=== PATIENT | male | born 1975 ===

== ENCOUNTER 2017-03-25 16:58 | Inpatient (IN) | payer MEDICAID, OTHER ==
--- NOTE | 2017-03-25 17:39 | C.PDOC ---
History Of Present Illness <Debora Billssamantha Parra - Last Filed: 03/25/17 19:01> <Lisa Nix - Last Filed: 03/25/17 19:33> 41-year-old male, pre screened for detox from Heroin, presents to the emergency department with complaints of swelling, pain and redness to the right arm. States he used six bags of Heroin today. Denies vomiting, diarrhea, fever, chills, numbness, or weakness. (Beatriz Bills) History Per: Patient History/Exam Limitations: no limitations <Debora Billssamantha Parra - Last Filed: 03/25/17 19:01> <Lisa Nix - Last Filed: 03/25/17 19:33> Time Seen by Provider: 03/25/17 17:17 Chief Complaint (Nursing): Substance Abuse Past Medical History Reviewed: Historical Data, Nursing Documentation, Vital Signs - Medical History PMH: Anxiety, Depression Denies: Diabetes, Hepatitis, HIV, HTN, Seizures, Sexually Transmitted Disease Family History: States: Unknown Family Hx - Social History Hx Tobacco Use: Yes (1 ppd) Hx Alcohol Use: No Hx Substance Use: Yes (percocet, heroin, cocaine, xanax) - Immunization History Hx Tetanus Toxoid Vaccination: Yes Hx Influenza Vaccination: No Hx Pneumococcal Vaccination: No <NatanaelkhangDeboraBeatriz C - Last Filed: 03/25/17 19:01> Review Of Systems Except As Marked, All Systems Reviewed And Found Negative. Constitutional: Positive for: Chills, Malaise. Negative for: Fever Cardiovascular: Negative for: Chest Pain Respiratory: Negative for: Shortness of Breath Gastrointestinal: Positive for: Nausea. Negative for: Vomiting Neurological: Negative for: Weakness, Numbness Psych: Negative for: Suicidal ideation <NatanaelkhangDeboraBeatriz C - Last Filed: 03/25/17 19:01> Physical Exam - Physical Exam Appears: Non-toxic, No Acute Distress, Other (calm and cooperative) Skin: Warm, Dry, Other (4x5 cm area of swelling and redness, that is warm and tender, to the right proximal forearm. No fluctuance or induration) Head: Atraumatic, Normacephalic Eye(s): bilateral: Normal Inspection Oral Mucosa: Moist Neck: Normal ROM Cardiovascular: Rhythm Regular Respiratory: Normal Breath Sounds, No Accessory Muscle Use Extremity: Normal ROM, Capillary Refill (< 2 sec), No Deformity Extremity: Bilateral: Normal Color And Temperature Pulses: Left Radial: Normal, Right Radial: Normal Neurological/Psych: Oriented x3, Normal Speech, Normal Motor, Normal Sensation Gait: Steady <Beatriz Bills - Last Filed: 03/25/17 19:01> ED Course And Treatment - Laboratory Results Result Diagrams: 03/25/17 18:11 03/25/17 18:11 O2 Sat by Pulse Oximetry: 97 (on RA) Pulse Ox Interpretation: Normal <Beatriz Bills - Last Filed: 03/25/17 19:01> - Laboratory Results Result Diagrams: 03/25/17 18:11 03/25/17 18:11 <Lisa Nix - Last Filed: 03/25/17 19:33> Medical Decision Making <Beatriz Bills - Last Filed: 03/25/17 19:01> <Lisa Nix - Last Filed: 03/25/17 19:33> Medical Decision Making: The patient has a cellulitis on the Right forearm, there is no fluctuance at this time and will start the patient on oral antibiotics. Skin marker was drawn around the wound to check for worsening. Keflex and Bactrim PO ordered. The patient should have both Keflex 500mg and Bactrim DS 1 tab PO twice a day for 14 days and a wound check in 1-2 days by a medicine doctor. The patient is medically cleared for detox. (Beatriz Bills) Disposition - Disposition Disposition Time: 19:03 - POA Present On Arrival: None <Beatriz Bills - Last Filed: 03/25/17 19:01> Counseled Patient/Family Regarding: Studies Performed, Diagnosis - Disposition Disposition Time: 19:32 - POA Present On Arrival: None <Lisa Nix - Last Filed: 03/25/17 19:33> - Disposition Disposition: HOSPITALIZED Condition: STABLE - Clinical Impression Clinical Impression: Cellulitis, Opiate dependence - Scribe Statement The provider has reviewed the documentation as recorded by the Scribe <Beatriz Bills - Last Filed: 03/25/17 19:01> <Lisa Nix - Last Filed: 03/25/17 19:33> - Scribe Statement Samanthaanne Madrigal All medical record entries made by the Scribe were at my direction and personally dictated by me. I have reviewed the chart and agree that the record accurately reflects my personal performance of the history, physical exam, medical decision making, and the department course for this patient. I have also personally directed, reviewed, and agree with the discharge instructions and disposition. (Beatriz Bills) Physician Patient Turnover Patient Signed Over To: Lisa Nix Handoff Comments: Pending psych call and disposition <Beatriz Bills - Last Filed: 03/25/17 19:01> Decision To Admit <Beatriz Bills - Last Filed: 03/25/17 19:01> - Pt Status Changed To: Hospital Disposition Of: Inpatient - Admit Certification Admit to Inpatient:: After my assessment, the patient will require hospitalization for at least two midnights. This is because of the severity of symptoms shown, intensity of services needed, and/or the medical risk in this patient being treated as an outpatient. - InPatient: Physician Admission Certification: I certify that this patient requires 2 or more midnights of care for the following reason:: SEE NOTE - . Bed Request Type: Detox Admitting Physician: Angela Farias <Lisa Nix - Last Filed: 03/25/17 19:33> - . Patient Diagnosis: Cellulitis, Opiate dependence
[2017-03-25 18:17] LABS: BASO % 0.6 % (0.0-2.0); EOS % 0.3 % (0.0-4.0); HEMATOCRIT 40.5 % (35.0-51.0); LYMPH # 1.3 K/uL (1.0-4.3); LYMPH % 15.9 % (20.0-40.0); MEAN CELL VOLUME 91.8 fL (80.0-94.0); MEAN CORPUSCULAR HEMOGLOBIN 30.6 pg (27.0-31.0); MEAN CORPUSCULAR HGB CONC 33.3 g/dL (33.0-37.0); MEAN PLATELET VOLUME 9.7 fL (7.2-11.7); MONO # 0.5 K/uL (0.0-0.8); MONO % 6.6 % (0.0-10.0); RED CELL DISTRIBUTION WIDTH 14.5 % (11.5-14.5); WHITE BLOOD COUNT 7.9 K/uL (4.8-10.8)
[2017-03-25 18:20] LABS: URINE BACTERIA RARE (<OCC); URINE BILIRUBIN NEGATIVE (NEGATIVE); URINE BLOOD NEGATIVE (NEGATIVE); URINE COLOR Yellow (YELLOW); URINE GLUCOSE (UA) NORMAL (Normal); URINE KETONE NEGATIVE (NEGATIVE); URINE LEUKOCYTE ESTERASE NEG Leu/uL (Negative); URINE PROTEIN NEGATIVE (NEGATIVE); WBC URINE < 1 /hpf (0-5)
[2017-03-25 18:21] LABS: CHLORIDE 101 mmol/L (98-107); POTASSIUM 3.7 mmol/L (3.6-5.2); SODIUM 137 mmol/L (132-148)
[2017-03-25 18:23] LABS: AST/SGOT 52 U/L (17-59); BILIRUBIN,TOTAL 0.7 mg/dL (0.2-1.3); CARBON DIOXIDE 23 mmol/L (22-30); GFR AFRICAN-AMERICAN > 60
[2017-03-25 18:24] LABS: ALB/GLOB RATIO 1.3 (1.0-2.1); ALKALINE PHOSPHATASE 55 U/L (38-126); ALT/SGPT 59 U/L (21-72); BLOOD UREA NITROGEN 9 mg/dL (9-20); CALCIUM 8.2 mg/dl (8.6-10.4); GLUCOSE,RANDOM 123 mg/dL (75-110); TOTAL PROTEIN 7.3 g/dL (6.3-8.3)
[2017-03-25 18:25] LABS: ALCOHOL SERUM < 10 mg/dl (0-10)
[2017-03-25] MEDS ORDERED: Tmp-Smz 800 mg-160 mg DS Tab PO STA (18:35)
[2017-03-25] MEDS ORDERED: Tmp-Smz 800 mg-160 mg DS Tab ONE (18:42)
[2017-03-25] MEDS ORDERED: Aluminum Hydroxide/Magnesium Hydroxide Susp (30 mL) PO PRN (23:06)
[2017-03-25] MEDS ORDERED: Benzocaine/Menthol (Cepacol) Lozenge PO PRN (23:06)
[2017-03-26] MEDS: Tmp-Smz 800 mg-160 mg DS Tab PO SCH ×4 (01:14→22:21)
--- NOTE | 2017-03-26 08:32 | RAD ---
PROCEDURE: Radiographs of the Right Forearm HISTORY: IVDA, swelling/red to right mid forearm COMPARISON: None available. TECHNIQUE: Frontal and lateral views obtained. FINDINGS: BONES: No fracture. An ulnar sided smooth periosteal reaction also volar sided with cortical thickening affects the distal radial metaphysis. There is thin intra cortical find radiolucency which may also involve the radial cortex of the same distal radial metaphyseal bony segment on the frontal view. Relative osseous radiolucency of the this distal radial metaphyseal segment is also suggested. A subacute to chronic osteomyelitis here needs to be considered. JOINT SPACES: Unremarkable. OTHER FINDINGS: There is diffuse subcutaneous reticulated edema most pronounced proximally the forearm on the lateral view bordering the elbow joint level no gas within the subcutaneous tissues is noted. IMPRESSION: Distal radial bony findings concerning for a subacute to chronic osteomyelitis. If indicated, consider MRI of the forearm for further evaluation.
--- NOTE | 2017-03-26 15:34 | PCM.PSYCH ---
Initial Psychiatric Evaluation - Initial Psychiatric Evaluation Type of Admission: Voluntary Legal Status: Capacity Chief Complaint (in patient's own words): "I want heroin detox" History of Present Illness and Precipitating Events: Pt is seen, chart reviewed, case discussed Pt is a 41 year old single male with two children. He is homeless and stays with different people. He is not employed. Pt presented to [facility] ER for cellulitis on his right arm and heroin detox. Pt has been using IV heroin since he was 24 years old. He uses 40-50 bags a day. He also uses IV cocaine and xanax occasionally. He smokes one pack a day and denies marijuana and alcohol use. Patient was hospitalized at [facility] in April 2016 for depression and attempted suicide. He has never been through detox before. Pt says he is feeling withdrawal symptoms, his last use was yesterday at 2pm. Patient says he feels depressed but denies S/I. Patient is currently on probation. He had been on methadone maintenance in the past but not for very long because he went to longterm for 90 days. Patient says his plan for after detox is to enter a "Re-entry" program so he can get housing. However, he has ongoing legal issues but is vague about them. PsychHx: Depression, Opiate use disorder PMH: denies FamPsychHx: denies Current Medications: Active Medications Generic Name Dose Route Start Last Admin Trade Name Freq PRN Reason Stop Dose Admin Acetaminophen 650 mg 03/25/17 23:06 Tylenol 325mg Tab PO Q4H PRN Fever greater than 101 F Al Hydrox/Mg Hydrox/Simethicone 30 ml 03/25/17 23:06 Maalox 30 Ml PO TID PRN Indigestion / Heartburn Benzocaine/Menthol 1 guanaco 03/25/17 23:06 Cepacol Sore Throat PO QID PRN Sore Throat Cephalexin Monohydrate 500 mg 03/25/17 23:15 03/26/17 11:06 Keflex PO 500 mg Q12 KANU Administration Clonidine HCl 0.1 mg 03/25/17 23:06 Catapres PO Q8 PRN COWS Score More or Equal to 5 Docusate Sodium 100 mg 03/26/17 10:00 03/26/17 11:06 Colace PO 100 mg DAILY KANU Administration Loperamide HCl 2 mg 03/25/17 23:06 Imodium PO Q8 PRN Diarrhea Methadone HCl 20 mg 03/26/17 10:00 03/26/17 11:07 Methadone PO 03/30/17 09:59 20 mg Q24H KANU Administration Taper Nicotine 1 patch 03/26/17 10:15 03/26/17 11:05 Nicoderm Cq TD 1 patch DAILY KANU Administration Ondansetron HCl 4 mg 03/25/17 23:06 Zofran Tab PO Q8 PRN Nausea/Vomiting Pseudoephedrine HCl 60 mg 03/25/17 23:06 Sudafed Tab PO QID PRN Nasal/Sinus Congestion Trazodone HCl 50 mg 03/25/17 22:45 03/25/17 22:41 Desyrel PO 50 mg HS PRN Administration insomnia Trimethoprim/Sulfamethoxazole 1 tab 03/25/17 23:15 03/26/17 11:06 Bactrim Ds Tab PO 1 tab Q12H KANU Administration Past Psychiatric History - Past Psychiatric History Pertinent Medical Hx (Current Medical&Sleep Prob, Allergies): Allergies Allergy/AdvReac Type Severity Reaction Status Date / Time No Known Allergies Allergy Verified 05/06/16 16:20 No Known Home Med 03/25/17 Review of Systems - Psychiatric Psychiatric: Anxiety, Depression, Irritability Mental Status Examination - Personal Presentation Personal Presentation: Looks stated age - Affect Affect: Flat - Motor Activity Motor Activity: Calm - Reliability in Providing Information Reliability in Providing Information: Fair - Speech Speech: Organized - Mood Mood: Depressed - Formal Thought Process Formal Thought Process: No Impairment - Obsessions/Compulsions Obsessions: No Compulsions: No - Cognitive Functions Orientation: Person, Place, Situation, Time Sensorium: Drowsy Attention/Concentration: Attentive Abstract Thinking: [place] Estimate of Intelligence: Average Judgement: Intact, as evidence by: Insight regarding need for hospitalization Memory: Remote intact, as evidenced by: Ability to recall historical events DSM 5 DX - DSM 5 DSM 5 Diagnosis: Opioid Withdrawal Opioid Use Disorder Cocaine Use Disorder Depression unspecified Personality d/o unspecified r/o Antisocial pers. d/o - Recommended/Plan of Treatment Treatment Recommendations and Plan of Treatment: Opioid Withdrawal -Methadone Taper -Clonidine PRN - monitor vitals - As needed meds for symptoms - CBT Opioid Use Disorder -CBT -attend groups and activities - group/individual therapy -NE for abstinence -psychosocial support and education Cocaine Use Disorder -CBT - monitor vitals -NE for abstinence -Psychosocial support and education Depression -CBT -attend groups and activities -Group/Individual therapy -Trazodone for insomnia Tobacco use disorder -start nicotine replacement therapy 33 min Projected ELOS: 4 days Prognosis: good with treatment Discharge Plan and Discharge Criteria: no wdw sxs refer to IOP and MAT - Smoking Cessation Smoking Cessation Initiated: Yes
[2017-03-26 16:19] VITALS: RESP 18
[2017-03-27 11:23] VITALS: BP 133/76; PULSE 89; TEMP 97.7; O2SAT 98
--- NOTE | 2017-03-27 12:55 | PCM.PYCHDC ---
Mental Status Examination - Mental Status Examination Orientation: Person, Place, Situation, Time Memory: Intact Mood: Neutral Affect: Constricted Speech: Appropriate Attention: WNL Concentration: WNL Association: WNL Fund of Knowledge: WNL Formal Thought Process: No Impairment Suicidal Ideation: No Current Homicidal Ideation?: No Discharge Summary - Discharge Note Reason for Hospitalization: Heroin detox Consultations:: List each consultation separately and include: 1. Reason for request. 2. Findings. 3. Follow-up Summary of Hospital Course include:: 1. Description of specific treatment plan utilized for patients during their course of treatmen. 2. Summarize the time- course for resolution of acute symptoms and/or regressed behaviors. 3. Describe issues identified and worked on during hospitalization. 4. Describe medication utilized. 5. Describe medical problems identified and treated. 6. Reassessment of suicide risk Summary of Hospital Course: On admission: Pt is a 41 year old single male with two children. He is homeless and stays with different people. He is not employed. Pt presented to [facility] ER for cellulitis on his right arm and heroin detox. Pt has been using IV heroin since he was 24 years old. He uses 40-50 bags a day. He also uses IV cocaine and xanax occasionally. He smokes one pack a day and denies marijuana and alcohol use. Patient was hospitalized at [facility] in April 2016 for depression and attempted suicide. He has never been through detox before. Pt says he is feeling withdrawal symptoms, his last use was yesterday at 2pm. Patient says he feels depressed but denies S/I. Patient is currently on probation. He had been on methadone maintenance in the past but not for very long because he went to long term for 90 days. Patient says his plan for after detox is to enter a "Re-entry" program so he can get housing. However, he has ongoing legal issues but is vague about them. PsychHx: Depression, Opiate use disorder PMH: denies FamPsychHx: denies Hospital course: Pt seen, chart reviewed, case discussed with staff. Pt was feeling "so, so" today. He reports that he did not sleep well and feels anxious. Denies suicidal/homicidal ideations. No severe wdw sxs. Pt discharged before he could complete his course of treatment because he was caught smoking cigarettes while in detox. His PO was made aware of the d/c as it was required and the pt did give a consent. A sap business analyst had come and asked to see him on d/c (he has new charges, while being on probation) but the pt declined to consent for us to talk with her. His PO is aware of the sap business analyst's request, though. Pt received medications as needed, did not attended much groups and activities as he was not motivated in treatment much. PA used Psychoeducation and support were given - Final Diagnosis (DSM 5) Condition upon Discharge: STABLE DSM 5: Opioid Withdrawal Opioid Use Disorder Cocaine Use Disorder Depression unspecified Personality d/o unspecified r/o Antisocial pers. d/o Disposition: AGAINST MEDICAL ADVICE Follow-up Treatment Plan: Return to ER if experience suicidal ideation, homicidal ideation, agitation continue treatment at methadone clinic Use relapse prevention skills - Smoking Cessation Smoking Cessation Medication prescribed: No - Antipsychotic Medications Pt discharged on 2 or more routine antipsychotic medications: No
== END 2017-03-27 11:20 | disposition left against medical advice (07) | DRG 743 ==
LOC: C.ER 16:58 → C.7D 19:33
PROVIDERS: ADMIT Psychiatry & Neurology Psychiatry; ATTEND Psychiatry & Neurology Psychiatry
PROC: HZ2ZZZZ Detoxification Services for Substance Abuse Treatment (ICD-10-PCS; principal; 2017-03-25)
DX: F11.23 Opioid dependence with withdrawal (principal); F32.9 Major depressive disorder, single episode, unspecified; L03.113 Cellulitis of right upper limb; Z59.0 Homelessness; F17.210 Nicotine dependence, cigarettes, uncomplicated; F14.90 Cocaine use, unspecified, uncomplicated; F60.9 Personality disorder, unspecified; Z65.3 Problems related to other legal circumstances

== ENCOUNTER 2018-01-14 15:10 | Inpatient (IN) | payer MEDICAID ==
[2018-01-14 15:52] VITALS: BMI 23.0
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
[2018-01-14] MEDS ORDERED: Oxycodone/Acetaminophen 5/325 mg Tab PO STA ×2 (16:08→18:26)
[2018-01-14] MEDS ORDERED: Oxycodone/Acetaminophen 5/325 mg Tab ONE ×2 (16:15→18:31)
[2018-01-14] MEDS ORDERED: Lidocaine 1% Inj (20ml) INFIL STA (16:16)
[2018-01-14] MEDS ORDERED: Lidocaine 1% Inj (20ml) ONE (16:28)
[2018-01-14] MEDS ORDERED: Epinephrine /Lidocaine HCL 1:100,000/2% 30 ml INFIL STA (16:33)
[2018-01-14] MEDS ORDERED: Lidocaine 2% w Epi 1:100,000 Inj IJ ONE (17:20)
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
[2018-01-14] MEDS ORDERED: Amoxicillin-Clav 875-125 mg Tab PO STA (18:28)
[2018-01-14] MEDS ORDERED: Amoxicillin-Clav 875-125 mg Tab PO ONE (18:31)
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
[2018-01-14 21:04] LABS: BASO % 0.5 % (0.0-2.0); EOS % 0.1 % (0.0-4.0); LYMPH # 2.3 K/uL (1.0-4.3); LYMPH % 24.2 % (20.0-40.0); MEAN CELL VOLUME 93.6 fL (80.0-94.0); MEAN CORPUSCULAR HEMOGLOBIN 31.5 pg (27.0-31.0); MEAN CORPUSCULAR HGB CONC 33.7 g/dL (33.0-37.0); MEAN PLATELET VOLUME 10.7 fL (7.2-11.7); MONO # 0.7 K/uL (0.0-0.8); MONO % 7.1 % (0.0-10.0); NEUT # 6.4 K/uL (1.8-7.0); NEUT % 68.1 % (50.0-75.0); NRBC % 0.1 % (0.0-2.0); RBC 5.18 Mil/uL (4.40-5.90); RED CELL DISTRIBUTION WIDTH 13.2 % (11.5-14.5); WHITE BLOOD COUNT 9.4 K/uL (4.8-10.8)
[2018-01-14 21:06] LABS: HEMOGLOBIN 16.3 g/dL (12.0-18.0)
[2018-01-14 21:12] LABS: PROTHROMBIN TIME 11.4 SECONDS (9.7-12.2)
[2018-01-14 21:15] LABS: ALB/GLOB RATIO 1.1 (1.0-2.1); ALBUMIN 4.7 g/dL (3.5-5.0); CALCIUM 9.7 mg/dl (8.6-10.4); GFR AFRICAN-AMERICAN > 60; GFR NON-AFRICAN AMERICAN > 60
[2018-01-14 21:16] LABS: ALT/SGPT 107 U/L (21-72); AST/SGOT 88 U/L (17-59); BLOOD UREA NITROGEN 15 mg/dL (9-20)
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
[2018-01-15] MEDS ORDERED: Oxycodone/Acetaminophen 5/325 mg Tab ONE
[2018-01-15] MEDS: Oxycodone/Acetaminophen 5/325 mg Tab PO PRN ×4 (00:06→22:52)
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
[2018-01-15 08:13] LABS: BASO % 0.6 % (0.0-2.0); EOS % 0.6 % (0.0-4.0); HEMOGLOBIN 14.4 g/dL (12.0-18.0); LYMPH # 2.9 K/uL (1.0-4.3); MEAN CELL VOLUME 93.3 fL (80.0-94.0); MEAN CORPUSCULAR HEMOGLOBIN 32.2 pg (27.0-31.0); MEAN CORPUSCULAR HGB CONC 34.5 g/dL (33.0-37.0); MEAN PLATELET VOLUME 10.8 fL (7.2-11.7); MONO # 0.6 K/uL (0.0-0.8); MONO % 7.1 % (0.0-10.0); NEUT # 4.4 K/uL (1.8-7.0); NEUT % 55.7 % (50.0-75.0); RBC 4.48 Mil/uL (4.40-5.90); RED CELL DISTRIBUTION WIDTH 13.1 % (11.5-14.5)
[2018-01-15 08:14] LABS: INR 1.1; PROTHROMBIN TIME 12.9 SECONDS (9.7-12.2)
[2018-01-15 08:23] LABS: ALB/GLOB RATIO 1.1 (1.0-2.1); ALBUMIN 3.8 g/dL (3.5-5.0); ALT/SGPT 87 U/L (21-72); AST/SGOT 59 U/L (17-59); BLOOD UREA NITROGEN 10 mg/dL (9-20); CALCIUM 8.5 mg/dl (8.6-10.4); GFR AFRICAN-AMERICAN > 60; GFR NON-AFRICAN AMERICAN > 60
--- NOTE | 2018-01-15 08:41 | RAD ---
HISTORY: preop COMPARISON: Chest x-ray performed 05/06/16 TECHNIQUE: Chest, one view. FINDINGS: LUNGS: No focal consolidation. Please note that chest x-ray has limited sensitivity for the detection of pulmonary masses. PLEURA: No significant pleural effusion identified. No definite pneumothorax . CARDIOVASCULAR: The cardiomediastinal silhouette appears within normal limits of size. OSSEOUS STRUCTURES: No acute osseous abnormality identified. VISUALIZED UPPER ABDOMEN: Unremarkable. OTHER FINDINGS: None. IMPRESSION: No focal consolidation identified.
--- NOTE | 2018-01-15 09:08 | CP.PCM.PN ---
Subjective - Date & Time of Evaluation Date of Evaluation: 01/15/18 Time of Evaluation: 09:05 - Subjective Subjective: consult dictated no neurosurgical intervention indicated Objective - Vital Signs/Intake and Output Vital Signs (last 24 hours): Temp Pulse Resp BP Pulse Ox 97.9 F 76 20 113/74 99 01/15/18 08:29 01/15/18 08:29 01/15/18 08:29 01/15/18 08:29 01/15/18 08:29 - Medications Medications: Current Medications Acetaminophen (Tylenol 325mg Tab) 650 mg PO Q6 PRN PRN Reason: Pain, Mild (1-3) Last Admin: 01/15/18 03:15 Dose: 650 mg Famotidine (Pepcid) 20 mg PO DAILY KANU Ceftriaxone Sodium 1 gm/ (Sodium Chloride) 100 mls @ 100 mls/hr IVPB DAILY [facility] Oxycodone/Acetaminophen (Percocet 5/325 Mg Tab) 1 tab PO Q6H PRN PRN Reason: Pain, severe (8-10) Stop: 01/17/18 23:54 Last Admin: 01/15/18 00:06 Dose: 1 tab Pneumococcal Polyvalent Vaccine (Pneumovax 23 Vaccine) 0.5 ml IM .ONCE ONE Stop: 01/18/18 10:01 - Labs Labs: 01/15/18 07:50 01/15/18 07:50 PT 12.9 SECONDS (9.7-12.2) H 01/15/18 07:50 INR 1.1 01/15/18 07:50 APTT 34 SECONDS (21-34) D 01/15/18 07:50
--- NOTE | 2018-01-15 09:19 | CT ---
PROCEDURE: CT HEAD WITHOUT CONTRAST. HISTORY: repeat CT - head trauma COMPARISON: 01/14/2018 TECHNIQUE: Axial computed tomography images were obtained through the head/brain without intravenous contrast. Radiation dose: Total exam DLP = 1234.65 mGy-cm. This CT exam was performed using one or more of the following dose reduction techniques: Automated exposure control, adjustment of the mA and/or kV according to patient size, and/or use of iterative reconstruction technique. FINDINGS: HEMORRHAGE: No intracranial hemorrhage. BRAIN: No mass effect or edema. No atrophy or chronic microvascular ischemic changes. VENTRICLES: Unremarkable. No hydrocephalus. CALVARIUM: Fracture left orbital roof with trace pneumocephalus at fracture site. PARANASAL SINUSES: Depressed fracture left lamina papyracea. Left orbital floor fracture. Fracture left orbital roof, nondisplaced. Minimal left orbital emphysema. Fluid/mucoperiosteal thickening left maxillary sinus, ethmoid, frontal and sphenoid sinuses. MASTOID AIR CELLS: Unremarkable as visualized. No inflammatory changes. OTHER FINDINGS: None. IMPRESSION: No intracranial hemorrhage. Trace pneumocephalus adjacent to left orbital roof fracture. Multiple facial fractures as described. Please see report of CT facial bones from 01/14/2018.
--- NOTE | 2018-01-15 13:11 | CARD ---
APPROVED REPORT EKG Measurement Heart [id number] <Conclusion> Sinus bradycardia Otherwise normal ECG
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
[2018-01-15] MEDS: Lactated Ringer's 1,000 ML IV SCH (15:45)
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
[2018-01-16] MEDS: Lactated Ringer's 1,000 ML IV SCH ×3 (00:45→10:02)
[2018-01-16] MEDS: Oxycodone/Acetaminophen 5/325 mg Tab PO PRN ×3 (06:50→19:42)
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
[2018-01-16 11:49] LABS: BASO % 0.4 % (0.0-2.0); EOS % 0.5 % (0.0-4.0); HEMOGLOBIN 14.3 g/dL (12.0-18.0); LYMPH % 27.7 % (20.0-40.0); MEAN CELL VOLUME 93.4 fL (80.0-94.0); MEAN CORPUSCULAR HEMOGLOBIN 31.6 pg (27.0-31.0); MEAN CORPUSCULAR HGB CONC 33.8 g/dL (33.0-37.0); MEAN PLATELET VOLUME 10.9 fL (7.2-11.7); MONO # 0.5 K/uL (0.0-0.8); MONO % 6.8 % (0.0-10.0); NEUT # 4.7 K/uL (1.8-7.0); NEUT % 64.6 % (50.0-75.0); RBC 4.54 Mil/uL (4.40-5.90); RED CELL DISTRIBUTION WIDTH 13.3 % (11.5-14.5); WHITE BLOOD COUNT 7.3 K/uL (4.8-10.8)
[2018-01-16] MEDS: Tobramycin 0.3% OPH OINT OS SCH ×3 (11:55→17:55)
[2018-01-16 12:22] LABS: ALB/GLOB RATIO 1.2 (1.0-2.1); ALBUMIN 4.2 g/dL (3.5-5.0); ALT/SGPT 84 U/L (21-72); AST/SGOT 55 U/L (17-59); BLOOD UREA NITROGEN 11 mg/dL (9-20); CALCIUM 9.4 mg/dl (8.6-10.4); GFR AFRICAN-AMERICAN > 60; GFR NON-AFRICAN AMERICAN > 60; MAGNESIUM 1.9 mg/dL (1.6-2.3)
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
[2018-01-17] MEDS: Oxycodone/Acetaminophen 5/325 mg Tab PO PRN ×2 (05:29→13:38)
[2018-01-17 09:03] VITALS: BP 116/68; RESP 18; TEMP 97.3; O2SAT 97
[2018-01-17] MEDS: Lactated Ringer's 1,000 ML IV SCH (10:32)
[2018-01-17] MEDS: Tobramycin 0.3% OPH OINT OS SCH ×2 (10:33→14:38)
[2018-01-17 11:41] LABS: BASO % 0.7 % (0.0-2.0); EOS % 0.6 % (0.0-4.0); HEMOGLOBIN 14.6 g/dL (12.0-18.0); LYMPH # 1.9 K/uL (1.0-4.3); LYMPH % 27.7 % (20.0-40.0); MEAN CELL VOLUME 93.3 fL (80.0-94.0); MEAN CORPUSCULAR HEMOGLOBIN 32.1 pg (27.0-31.0); MEAN CORPUSCULAR HGB CONC 34.5 g/dL (33.0-37.0); MEAN PLATELET VOLUME 11.3 fL (7.2-11.7); MONO # 0.5 K/uL (0.0-0.8); MONO % 7.2 % (0.0-10.0); NEUT # 4.5 K/uL (1.8-7.0); NEUT % 63.8 % (50.0-75.0); RBC 4.55 Mil/uL (4.40-5.90); RED CELL DISTRIBUTION WIDTH 13.2 % (11.5-14.5)
[2018-01-17 12:27] LABS: ALB/GLOB RATIO 1.1 (1.0-2.1); ALT/SGPT 77 U/L (21-72); AST/SGOT 53 U/L (17-59); BLOOD UREA NITROGEN 11 mg/dL (9-20); CALCIUM 9.2 mg/dl (8.6-10.4); GFR AFRICAN-AMERICAN > 60; GFR NON-AFRICAN AMERICAN > 60; MAGNESIUM 1.8 mg/dL (1.6-2.3)
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
[2018-01-17 14:48] VITALS: PULSE 87
[2018-01-17] MEDS ORDERED: Amoxicillin-Clav 875-125 mg Tab PO SCH (20:00)
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
[2018-01-18] MEDS ORDERED: Pneumococcal 23-Valent Vaccine IM ONE (10:00)
== END 2018-01-17 16:16 | disposition home or self-care (01) | DRG 158 ==
LOC: C.ER 15:10 → C.9E 20:58 → C.6T 01-15 00:24
PROVIDERS: ADMIT Internal Medicine; ATTEND Internal Medicine
PROC: 0HQ1XZZ Repair Face Skin, External Approach (ICD-10-PCS; principal; 2018-01-14)
DX: S02.40DA Maxillary fracture, left side, initial encounter for closed fracture (principal); S02.32XA Fracture of orbital floor, left side, initial encounter for closed fracture; T79.7XXA Traumatic subcutaneous emphysema, initial encounter; S05.32XA Ocular laceration without prolapse or loss of intraocular tissue, left eye, initial encounter; H05.409 Unspecified enophthalmos, unspecified eye; S02.2XXA Fracture of nasal bones, initial encounter for closed fracture; S01.112A Laceration without foreign body of left eyelid and periocular area, initial encounter; S01.412A Laceration without foreign body of left cheek and temporomandibular area, initial encounter; B19.20 Unspecified viral hepatitis C without hepatic coma; F12.90 Cannabis use, unspecified, uncomplicated; H53.2 Diplopia; H57.04 Mydriasis; Y04.0XXA Assault by unarmed brawl or fight, initial encounter; Y92.830 Public park as the place of occurrence of the external cause

== ENCOUNTER 2018-05-02 23:50 | Emergency (ER) | payer MEDICAID ==
[2018-05-02 23:51] VITALS: BMI 23.0
[2018-05-03] MEDS ORDERED: Bupivacaine 0.25% Inj(30mL) IJ ONE (00:19)
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
[2018-05-03] MEDS ORDERED: Bupivacaine 0.25% Inj(30mL) INJ ONE (00:30)
[2018-05-03] MEDS ORDERED: Oxycodone/Acetaminophen 5/325 mg Tab PO STA (00:51)
[2018-05-03] MEDS ORDERED: Oxycodone/Acetaminophen 5/325 mg Tab ONE (00:57)
[2018-05-03 00:59] VITALS: BP 144/46; PULSE 89; RESP 18; TEMP 99
[2018-05-03 04:02] VITALS: O2SAT 99
== END 2018-05-03 00:57 | disposition home or self-care (01) ==
LOC: C.ER 23:50
DX: K02.9 Dental caries, unspecified (principal); F17.210 Nicotine dependence, cigarettes, uncomplicated

== ENCOUNTER 2018-07-10 12:37 | Emergency (ER) | payer OTHER ==
[2018-07-10 12:38] VITALS: BMI 23.0
[2018-07-10 12:41] VITALS: BP 115/71; PULSE 60; RESP 20; TEMP 98.1; O2SAT 98
[2018-07-10] MEDS ORDERED: PROPARACAINE/FLUORESCEIN SOD 100 DROP/5 ML BOTTLE ONE (12:52)
[2018-07-10] MEDS ORDERED: Tdap Vaccine 0.5 ml Vial (10-64 yrs) IM ONE ×2 (13:03→13:13)
--- NOTE | 2018-07-10 13:05 | C.PDOC ---
History Of Present Illness Patient is a 42 year old male patient presents to the ER with c/o metal in his right eye. Patient reports he was grinding metal in the fire escape and a piece of metal flew in his eye at 9 am. Patient states he was not wearing protective eye gear during the grinding. Patient states he cannot open his right eye and it is very painful. Patient notes he does not remember the last time he received his tetanus shot. PMD: Dr. Michelle Covarrubias. Time Seen by Provider: 07/10/18 12:46 Chief Complaint (Nursing): Eye Problem History Per: Patient History/Exam Limitations: no limitations Onset/Duration Of Symptoms: Hrs Current Symptoms Are (Timing): Still Present Quality: "Pain" Past Medical History Reviewed: Historical Data, Nursing Documentation, Vital Signs Vital Signs: Last Vital Signs Temp 98.1 F 07/10/18 12:39 Pulse 60 07/10/18 12:39 Resp 20 07/10/18 12:39 BP 115/71 07/10/18 12:39 Pulse Ox 98 07/10/18 13:34 - Medical History PMH: Anxiety, Depression - [facility] Procedures APPLICATION OF SPLINT (07/22/15) CLOSURE SKIN & SUBCUTANEOUS NEC (04/02/14) DETOXIFICATION SERVICES FOR SUBSTANCE ABUSE TREATMENT (03/25/17) GROUP RADIO TIME BUYER FOR SUBSTANCE ABUSE TREATMENT, PSYCHOEDUCATION (05/06/16) REPAIR FACE SKIN, EXTERNAL APPROACH (01/14/18) REPLAC M/S IMMOB DEV NEC (08/04/15) TETANUS TOXOID ADMINIST (04/02/14) Family History: States: Unknown Family Hx - Social History Hx Tobacco Use: Yes (1 ppd) Hx Alcohol Use: No Hx Substance Use: No - Immunization History Hx Tetanus Toxoid Vaccination: Yes Hx Influenza Vaccination: Yes Hx Pneumococcal Vaccination: Yes Review Of Systems Except As Marked, All Systems Reviewed And Found Negative. Eyes: Positive for: Pain Physical Exam - Physical Exam Appears: Well, Non-toxic, No Acute Distress Skin: Normal Color, Warm, Dry Head: Atraumatic, Normacephalic Eye(s): bilateral: PERRL, EOMI, right: Other (erythema of right conjunctiva, see MDM portion of note as well) ED Course And Treatment O2 Sat by Pulse Oximetry: 98 - Physician Consult Information Physician Contacted: Lan Moyer Outcome Of Conversation: Suggest prescription of Tobramycin and f/u on thursday Eye Treatment - Treatment Performed Eye Treatment: Other: (Fluorescein ) Foreign Body Removal With: Cotton Tip Swab (soaked in saline) Residual Material After FB Removal: Debris (tiny speck of metal) Intraocular Pressure: Right Eye (mm Hg): (3; position of cornea, round pinpoint uptake of fluorescein) Medical Decision Making Medical Decision Making: Initial impression: metal in right eye of patient initial plan: -- Tetanus booster Eye Procedure: Fluorescein was dropped into the right eye for numbing and a Wood 's Lamp was used to evaluate the eye. (+) pinpoint uptake of fluroscein at 4 o' clock position of cornea. Cotton swab was soaked in normal saline and small speck of metal/debris was removed from this location. Patient tolerated procedure well. Patient is now resting comfortably. Case discussed with Dr. Moyer (eye doctor) and suggested to prescribe abx eye drops. Patient is instructed to f/u with chainstitch seat joiner Dr. Moyer on Thursday at 9:30 AM for further treatment of right eye. Disposition Counseled Patient/Family Regarding: Studies Performed, Diagnosis - Disposition Referrals: Lan Moyer [Staff Provider] - Disposition: HOME/ ROUTINE Disposition Time: 13:14 Condition: IMPROVED Additional Instructions: Mr. Mota, thank you for letting us take care of you. Return to the ER if your symptoms worsen, or if any problems. Take the medication listed below as prescribed. Please go to [facility] at 9:30 AM this Thursday ([address] [place] [address]) to see the eye doctor. The name of the eye doctor (chainstitch seat joiner) is Dr. Lan Moyer and he is expecting you this Thursday. Apply a cold pack to your eye for additional pain relief as needed. Prescriptions: Ibuprofen [Motrin] 1 tab PO Q8 PRN #30 tab PRN Reason: Pain, Moderate (4-7) Tobramycin [Tobrex] 1 drop RIGHTEYE QID #5 ml Instructions: Corneal Abrasion (DC) Forms: [facility] (Sol[place] Islander) Print Language: AMHARIC - POA Present On Arrival: None - Clinical Impression Clinical Impression: Corneal abrasion, right, Foreign body in eyeball, right - Scribe Statement The provider has reviewed the documentation as recorded by the Scribe Tiwair Do Provider Attestation: All medical record entries made by the Scribe were at my direction and personally dictated by me. I have reviewed the chart and agree that the record accurately reflects my personal performance of the history, physical exam, medical decision making, and the department course for this patient. I have also personally directed, reviewed, and agree with the discharge instructions and disposition.
== END 2018-07-10 13:30 | disposition home or self-care (01) ==
LOC: C.ER 12:37
DX: T15.01XA Foreign body in cornea, right eye, initial encounter (principal); X58.XXXA Exposure to other specified factors, initial encounter; F17.210 Nicotine dependence, cigarettes, uncomplicated; Z23 Encounter for immunization

== ENCOUNTER 2018-08-25 17:18 | Emergency (ER) | payer OTHER ==
[2018-08-25 17:18] VITALS: BMI 23.0
[2018-08-25 17:41] VITALS: BP 101/65; PULSE 66; RESP 18; TEMP 98.8; O2SAT 97
--- NOTE | 2018-08-25 18:00 | C.PDOC ---
History Of Present Illness 43 y/o male presents to the ER complaining of chronic back pain. Patient was recently incarcerated and has to follow up with painter and paperhanger apprentice Dr. Silvano Mead. However, patient is seeking referral for new painter and paperhanger apprentice. Denies hx of ongoing narcotic use. Time Seen by Provider: 08/25/18 17:53 Chief Complaint (Nursing): Back Pain History Per: Patient History/Exam Limitations: no limitations Onset/Duration Of Symptoms: Days Current Symptoms Are (Timing): Still Present Severity: Moderate Past Medical History Reviewed: Historical Data, Nursing Documentation, Vital Signs Vital Signs: Last Vital Signs Temp 98.8 F 08/25/18 17:32 Pulse 66 08/25/18 17:32 Resp 18 08/25/18 17:32 BP 101/65 08/25/18 17:32 Pulse Ox 97 08/25/18 17:32 - Medical History PMH: Anxiety, Depression Denies: Diabetes, Hepatitis, HIV, HTN, Seizures, Sexually Transmitted Disease Other Surgeries: Hx of surgeries - [facility] Procedures APPLICATION OF SPLINT (07/22/15) CLOSURE SKIN & SUBCUTANEOUS NEC (04/02/14) DETOXIFICATION SERVICES FOR SUBSTANCE ABUSE TREATMENT (03/25/17) GROUP RUG INSPECTOR FOR SUBSTANCE ABUSE TREATMENT, PSYCHOEDUCATION (05/06/16) REPAIR FACE SKIN, EXTERNAL APPROACH (01/14/18) REPLAC M/S IMMOB DEV NEC (08/04/15) TETANUS TOXOID ADMINIST (04/02/14) Family History: States: No Known Family Hx - Social History Hx Tobacco Use: Yes (1 ppd) Hx Alcohol Use: No Hx Substance Use: No - Immunization History Hx Tetanus Toxoid Vaccination: Yes Hx Influenza Vaccination: Yes Hx Pneumococcal Vaccination: Yes Review Of Systems Except As Marked, All Systems Reviewed And Found Negative. Musculoskeletal: Positive for: Back Pain Neurological: Negative for: Weakness, Numbness Physical Exam - Physical Exam Appears: No Acute Distress, Other (asleep upon my arrival for exam, flat affect) Skin: Normal Color, Warm, Dry Head: Atraumatic, Normacephalic Eye(s): bilateral: Other (pinpoint pupils) Nose: Normal Oral Mucosa: Moist Neck: Supple Chest: Symmetrical Cardiovascular: Rhythm Regular Respiratory: Normal Breath Sounds, No Rales, No Rhonchi, No Wheezing Back: Normal Inspection Neurological/Psych: Oriented x3, Normal Speech Gait: Steady (without pain) ED Course And Treatment O2 Sat by Pulse Oximetry: 97 (RA) Pulse Ox Interpretation: Normal Medical Decision Making Medical Decision Making: chronic pain lost to Pain Mgmt f/u pinpoint pupils NAD now Referred to Dr. Del Valle Prior Pain Mgmg: Silvano Mead h/o anxiety depression refer to [facility] for further counseling h/o Opiate abuse pinpoint pupils in ED suspect ongoing. Recommend non-narcotic chronic pain mgmt as able. Disposition Doctor Will See Patient In The: Office Counseled Patient/Family Regarding: Studies Performed, Diagnosis - Disposition Referrals: [facility] [Outside] [facility] [Outside] [facility] [Outside] [facility] [Outside] [facility] [Outside] Meliza Tiwari MD [Staff Provider] - Disposition: HOME/ ROUTINE Disposition Time: 17:59 Condition: GOOD Additional Instructions: ice packs to back area 1/2 hour per hour, nothing hot. Motrin/Advil/Ibuprofen 400-600 mg every 6 hours as needed Call to make appt to f/u with Dr. Del Valle- Chronic Pain Mgmt Forms: [facility] (Mongolian) - Clinical Impression Clinical Impression: Chronic back pain - Scribe Statement The provider has reviewed the documentation as recorded by the Scribe Jessie Ha Provider Attestation: All medical record entries made by the Scribe were at my direction and personally dictated by me. I have reviewed the chart and agree that the record accurately reflects my personal performance of the history, physical exam, medical decision making, and the department course for this patient. I have also personally directed, reviewed, and agree with the discharge instructions and disposition.
== END 2018-08-25 18:05 | disposition home or self-care (01) ==
LOC: C.ER 17:18
DX: M54.9 Dorsalgia, unspecified (principal); G89.29 Other chronic pain